=== PATIENT | male | born 1975 | race Hispanic/Latino ===

== ENCOUNTER 2024-05-09 23:00 | Observation (INO) | payer SELFPAY ==
[~2024-05-09] VITALS: Ht 162.6 cm; Wt 56.0 kg
[2024-05-09 23:06] VITALS: BP 136/88
[2024-05-09 23:39] LABS: BASO% 0.6 % (0-3); EOS% 2.1 % (0-8); HEMATOCRIT 30.6 % (39.0-50.0); HEMOGLOBIN 10.1 g/dl (14.0-18.0); IMMATURE GRANULOCYTES 0.1 % (0.0-5.0); LYMPH% 45.1 % (15-41); MEAN CELL VOLUME 91.1 fL CALC (80.0-100.0); MEAN CORPUSCULAR HGB 30.1 pG CALC (26.0-32.0); NEUT# 3.07 thou/uL (1.82-7.42); NEUT% 45.1 % (42-76); RED BLOOD COUNT 3.36 mill/uL (4.70-6.10); RED CELL DISTRI WIDTH 17.7 % (11.5-15.5)
[2024-05-09 23:43] VITALS: BP 119/88
[2024-05-09 23:45] VITALS: BP 121/81
[2024-05-09 23:52] LABS: ALBUMIN 3.7 g/dL (3.2-5.0); ALKALINE PHOSPHATASE 189 u/l (38-126); ANION GAP 13 (6-22 (CALC)); BUN 6 mg/dL (9-20); BUN/CREATININE RATIO 8 (12-20 (CALC)); CARBON DIOXIDE 27 mmol/l (22-30); CHLORIDE 108 mmol/l (95-108); CREATININE 0.7 mg/dL (0.7-1.3); ESTIMATED GFR 114 ML/MIN (>=90 (CALC)); POTASSIUM 4.2 mmol/l (3.5-5.1); SODIUM 143 mmol/l (137-146); TOTAL PROTEIN 8.2 g/dL (6.3-8.2)
[2024-05-09] MEDS ORDERED: THIAMINE HCL 100 MG/ML 2ML VIAL IV ONE (23:55)
[2024-05-09 23:59] LABS: BILIRUBIN, TOTAL 0.8 mg/dL (0.2-1.3); SGOT/AST 92 u/l (17-59)
[2024-05-10] VITALS (20 sets, daily range): BP systolic 79–140; BP diastolic 41–89
[2024-05-10] LABS: ETHYL ALCOHOL 470 mg/dl (0-30)
[2024-05-10 00:39] LABS: URINE BILIRUBIN - DIPSTICK Negative (NEGATIVE); URINE BLOOD DIPSTICK Negative (NEGATIVE); URINE CLARITY Clear; URINE GLUCOSE - DIPSTICK Negative (NEGATIVE); URINE KETONE Negative (NEGATIVE); URINE LEUK ESTERASE Negative (Negative); URINE NITRITE - DIPSTICK Negative (Negative); URINE PH 5.5 (4.5-8.0); URINE PROTEIN - DIPSTICK Negative (NEG-TRACE); URINE SPECIFIC GRAVITY <=1.005; URINE UROBILINOGEN - DIPSTICK 0.2 E.U./dL (0.2)
[2024-05-10 00:40] LABS: URINE COLOR Yellow
[2024-05-10] MEDS ORDERED: Diph, Acellular Pertussis, Tet 0.5 ML/VIAL (Tdap) SDV IM ONE (00:40)
[2024-05-10] MEDS ORDERED: MAGNESIUM HYDROXIDE 30 ML UDC PO PRN (03:05)
[2024-05-10] MEDS ORDERED: SODIUM CHLORIDE 0.9% 1,000 ML IV PRN (03:05)
[2024-05-10] MEDS ORDERED: ACETAMINOPHEN 325 MG/TAB PO PRN (03:05)
[2024-05-10] MEDS ORDERED: LORazepam 2 MG/ML IV PRN (08:45)
[2024-05-10] MEDS ORDERED: chlordiazePOXIDE HCL 25 MG CAP PO PRN (08:45)
[2024-05-10] MEDS ORDERED: MULTIPLE VITAMIN 10 ML,THIAMINE HCL 100 MG in SODIUM CHLORIDE 0.9% 1,000 ML IV SCH (10:00)
[2024-05-10] MEDS ORDERED: SODIUM CHLORIDE 0.9% 1,000 ML IV ONE (11:01)
[2024-05-10] MEDS ORDERED: ENOXAPARIN SODIUM 40 MG/0.4 ML SYR SC SCH (21:00)
== END 2024-05-10 16:18 | disposition home or self-care (01) | DRG 884 ==
LOC: ED 23:00 → ED-I 05-10 02:40 → ED 05-10 03:01 → EDBD 05-10 03:02 → MS2 05-10 03:02
PROVIDERS: Emergency Medicine; ADMIT Internal Medicine; ATTEND Internal Medicine
PROC: 0HQ1XZZ Repair Face Skin, External Approach (ICD-10-PCS; principal; 2024-05-09)
DX: R40.4 Transient alteration of awareness (principal); S01.81XA Laceration without foreign body of other part of head, initial encounter; F10.129 Alcohol abuse with intoxication, unspecified; Y90.8 Blood alcohol level of 240 mg/100 ml or more; Y92.481 Parking lot as the place of occurrence of the external cause; W18.30XA Fall on same level, unspecified, initial encounter
CPT/HCPCS: 90715; G0378; J3411; Q9967